=== PATIENT | female | born 1960 | race Caucasian/White ===

== ENCOUNTER 2024-01-28 07:49 | Day surgery (SDC) | payer BC ==
[~2024-01-28 07:49] MED LIST: Sodium Chloride 0.9% 10 ML Syringe FLUSH PRN
[2024-01-28] MEDS: Lactated Ringers 1,000 ML IV SCH (08:10)
[2024-01-28] MEDS ORDERED: Midazolam 1 MG/ML 2 ML SDV ONE (08:19)
[2024-01-28] MEDS ORDERED: Propofol 200 MG/20 ML SDV ONE ×4 (08:19→08:39)
[2024-01-28] MEDS ORDERED: Lidocaine 1% PF 2 ML SDV ONE ×2 (08:19)
[2024-01-28] MEDS ORDERED: Lidocaine 1% 4 ML ONE ×2 (08:19)
[2024-01-28] MEDS ORDERED: Sodium Chloride 0.9% 10 ML Syringe FLUSH SCH (09:00)
== END 2024-01-28 10:10 | disposition home or self-care (01) ==
LOC: JD.SDS 07:49
PROVIDERS: ATTEND Surgery
DX: Z12.11 Encounter for screening for malignant neoplasm of colon (principal); K29.80 Duodenitis without bleeding; K29.50 Unspecified chronic gastritis without bleeding; K21.00 Gastro-esophageal reflux disease with esophagitis, without bleeding; K63.5 Polyp of colon; D12.5 Benign neoplasm of sigmoid colon; K44.9 Diaphragmatic hernia without obstruction or gangrene; K57.30 Diverticulosis of large intestine without perforation or abscess without bleeding; K64.0 First degree hemorrhoids; E78.00 Pure hypercholesterolemia, unspecified; I10 Essential (primary) hypertension; E66.9 Obesity, unspecified; Z68.36 Body mass index [BMI] 36.0-36.9, adult; Z79.899 Other long term (current) drug therapy
CPT/HCPCS: 43239; 45380; J2250; J2704; J7120; 00813; J3490